=== PATIENT | female | born 1990 | race American Indian/Alaskan Native ===

== ENCOUNTER 2019-05-21 18:16 | Emergency (ER) | payer OTHER ==
[~2019-05-21] VITALS: Ht 170.2 cm; Wt 116.6 kg
[~2019-05-21 18:16] MED LIST: IBUPROFEN200 M1 PO; IRON325 M1 PO; TYLENOL325 MG PO; VITAFOL-OB+DHA1 EACH PO
== END 2019-05-21 19:39 | disposition home or self-care (01) ==
LOC: ED 18:16
DX: S93.402A Sprain of unspecified ligament of left ankle, initial encounter (principal); X50.9XXA Other and unspecified overexertion or strenuous movements or postures, initial encounter; Z87.891 Personal history of nicotine dependence
CPT/HCPCS: 73610; 84703; 99283-25

== ENCOUNTER 2020-06-26 09:15 | Inpatient (IN) | payer BC, OTHER ==
--- NOTE | 2020-06-26 09:45 | NUR ---
BOTH NARES SWABBED FOR COVID-19 WITHOUT COMPLICATION. SAMPLE TAKEN TO [facility] FOR RAPID TESTING.
--- NOTE | 2020-06-26 20:40 | PR ---
[facility] [address] [facility] [place], [place] [address] Signed Progress Notes IP Datetime Report Generated by CPN: 06/26/2020 20:40 PROGRESS NOTES: [id number] Impression: Reassuring Heart Rate Other Impressions: slow progress Procedures: Sterile Vag Exam Plan: Continue Present Management VITAL SIGNS: [id number] Vital Signs: Reviewed; Within Normal Limits EXAM: [id number] Dilatation: 4.0 Effacement: 50 Station: -2 Contractions: not picking up well MEMBRANES: [id number] Membranes Status: Ruptured Comments: Comfortable after epidural. Will continue. FETUS A: [id number] FHR Baseline: 130 Variability: Moderate 6-25bpm Accelerations: 15X15 Decelerations: None FHR Category: Category I Presentation: Vertex Comments on Fetus A: No evidence of metabolic acidosis FETUS B: [id number] Signing Physician: Pauline Marsh MD Copies: ~ *Electronically Signed* 06/26/202039 PAULINE MARSH MD PATIENT NAME: IRMA TOLEDO PROGRESS NOTE DATE OF : 89 PHYSICIAN: PAULINE MARSH MD RPT #: [id number] REPORT IS CONFIDENTIAL AND NOT TO BE RELEASED WITHOUT AUTHORIZATION
--- NOTE | 2020-06-27 03:16 | PR ---
[facility] [address] [place], [place] [address] Signed Progress Notes IP Datetime Report Generated by CPN: 06/27/2020 03:16 PROGRESS NOTES: [id number] Impression: Normal Progression of Labor Other Impressions: slow progress Procedures: Sterile Vag Exam Plan: Anesthesia Consult VITAL SIGNS: [id number] Vital Signs: Reviewed; Within Normal Limits EXAM: [id number] Dilatation: 9.0 Effacement: 75 Station: -2 Contractions: not picking up well MEMBRANES: [id number] Membranes Status: Ruptured Comments: Uncomfortable again. Progressing though minimal progress over the last 90 min. Will redose epidural and continue with position changes. FETUS A: [id number] FHR Baseline: 130 Variability: Moderate 6-25bpm Accelerations: 15X15 Decelerations: None FHR Category: Category I Presentation: Vertex Comments on Fetus A: No evidence of metabolic acidosis FETUS B: [id number] Signing Physician: Pauline Marsh MD Copies: ~ *Electronically Signed* 06/27/20 031 PAULINE MARSH MD PATIENT NAME: TRETEEYESSENIA EDWARDS PROGRESS NOTE DATE OF : 89 PHYSICIAN: PAULINE MARSH MD RPT #: [id number] REPORT IS CONFIDENTIAL AND NOT TO BE RELEASED WITHOUT AUTHORIZATION
--- NOTE | 2020-06-27 03:42 | PR ---
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 IUPC placed and will add pitocin if needed. Anesthesia here for redose of epidural. FETUS A: [id number] FHR Baseline: 130 Variability: Moderate 6-25bpm Accelerations: 15X15 Decelerations: None FHR Category: Category I Presentation: Vertex Comments on Fetus A: No evidence of metabolic acidosis FETUS B: [id number] Signing Physician: Pauline Marsh MD Copies: ~ *Electronically Signed* 06/27/20 034 PAULINE MARSH MD PATIENT NAME: IRMA TOLEDOAY PROGRESS NOTE DATE OF : 90 PHYSICIAN: PAULINE MARSH MD RPT #: [id number] REPORT IS CONFIDENTIAL AND NOT TO BE RELEASED WITHOUT AUTHORIZATION
--- NOTE | 2020-06-28 08:20 | PR ---
[facility] [address] [facility] [place], [place] [address] Signed PP Progress Notes Datetime Report Generated by CPN: 06/28/2020 08:20 SUBJECTIVE: [id number] Pain: Within Normal Limits Nausea/Vomiting: Denies Vital Signs: [id number] Vital Signs: Reviewed; Within Normal Limits EXAM: Ongoing Cardiovascular: Not Done Respiratory: Not Done Abdomen/Uterus: Abnormal Lochia: Normal Vulva/Perineum: Not Done Breasts: Not Done CVA Tenderness: Not Done Extremities: Normal Incision: Not Applicable Progress: Normal Exam Comments: Fundus firm, NT @ U-1. Labs pending IMPRESSION/PLAN/PROCEDURES: [id number] Impression: Normal Progression Plan: Discharge Procedures: None Progress Notes: Doing well. She would like discharge this afternoon. She had multiple doses of antibiotics. Signing Physician: Pauline Marsh MD Copies: ~ *Electronically Signed* 06/28/20819 PAULINE MARSH MD PATIENT NAME: IRMA TOLEDO PROGRESS NOTE DATE OF : 90 PHYSICIAN: PAULINE MARSH MD RPT #: [id number] REPORT IS CONFIDENTIAL AND NOT TO BE RELEASED WITHOUT AUTHORIZATION
== END 2020-06-28 16:46 | disposition home or self-care (01) | DRG 807 ==
LOC: FBC 09:15
PROVIDERS: ADMIT Obstetrics & Gynecology; ATTEND Obstetrics & Gynecology
PROC: 10907ZC Drainage of Amniotic Fluid, Therapeutic from Products of Conception, Via Natural or Artificial Opening (ICD-10-PCS; 2020-06-26)
PROC: 3E0P7VZ Introduction of Hormone into Female Reproductive, Via Natural or Artificial Opening (ICD-10-PCS; 2020-06-26)
PROC: 00HU33Z Insertion of Infusion Device into Spinal Canal, Percutaneous Approach (ICD-10-PCS; 2020-06-26)
PROC: 3E0R3BZ Introduction of Anesthetic Agent into Spinal Canal, Percutaneous Approach (ICD-10-PCS; 2020-06-26)
PROC: 10E0XZZ Delivery of Products of Conception, External Approach (ICD-10-PCS; principal; 2020-06-27)
PROC: 0HQ9XZZ Repair Perineum Skin, External Approach (ICD-10-PCS; 2020-06-27)
PROC: 10H07YZ Insertion of Other Device into Products of Conception, Via Natural or Artificial Opening (ICD-10-PCS; 2020-06-27)
DX: O48.0 Post-term pregnancy (principal); Z37.0 Single live birth; O99.824 Streptococcus B carrier state complicating childbirth; Z20.822 Contact with and (suspected) exposure to COVID-19; Z3A.40 40 weeks gestation of pregnancy; O99.334 Smoking (tobacco) complicating childbirth; F17.210 Nicotine dependence, cigarettes, uncomplicated; O69.81X0 Labor and delivery complicated by cord around neck, without compression, not applicable or unspecified; O99.214 Obesity complicating childbirth; E66.01 Morbid (severe) obesity due to excess calories; O99.284 Endocrine, nutritional and metabolic diseases complicating childbirth; E55.9 Vitamin D deficiency, unspecified; O70.0 First degree perineal laceration during delivery; Z86.19 Personal history of other infectious and parasitic diseases
CPT/HCPCS: 01960; 36415; 85027; A9270; J2001; J2540; J2590; J2795; U0003

== ENCOUNTER 2021-09-28 19:42 | Emergency (ER) | payer BC, OTHER ==
[~2021-09-28] VITALS: Ht 170.2 cm; Wt 95.2 kg
[2021-09-28] MEDS ORDERED: CYCLOBENZAPRINE10 MG PO (21:59)
[2021-09-28] MEDS ORDERED: MOBIC15 MG PO (21:59)
--- NOTE | 2021-09-30 14:07 | EKG ---
[facility] [address] [facility] [place] [address] Signed Normal sinus rhythm Rightward axis Borderline ECG No previous ECGs available Confirmed by DAGO BERMUDEZ MD ([id number]) on 09/30/2021 2:07:13 PM Electronically Signed By: DAGO BERMUDEZ MD 09/30/21 1407 PATIENT NAME: IRMA TOLEDO ANGELICAMARVA Electrocardiogram DATE OF : 89 PHYSICIAN: DAGO BERMUDEZ MD REPORT #: [id number] REPORT IS CONFIDENTIAL AND NOT TO BE RELEASED WITHOUT AUTHORIZATION
== END 2021-09-28 22:30 | disposition home or self-care (01) ==
LOC: ED 19:42
DX: M94.0 Chondrocostal junction syndrome [Tietze] (principal); I10 Essential (primary) hypertension; F17.200 Nicotine dependence, unspecified, uncomplicated
CPT/HCPCS: 36415; 71045; 71260; 80053; 83735; 84484; 85025; 85379; 85610; 93005; 93010; 99285-25; Q9967

== ENCOUNTER 2025-04-16 00:52 | Emergency (ER) | payer OTHER ==
[~2025-04-16] VITALS: Ht 170.2 cm; Wt 125.0 kg
[~2025-04-16 00:52] MED LIST changes: +CYCLOBENZAPRINE10 MG PO; +MOBIC15 MG PO
[2025-04-16 01:28] VITALS: BP 127/88
== END 2025-04-16 01:30 | disposition left against medical advice (07) ==
LOC: ED 00:52
DX: S06.9X1A Unspecified intracranial injury with loss of consciousness of 30 minutes or less, initial encounter (principal); S01.511A Laceration without foreign body of lip, initial encounter; I10 Essential (primary) hypertension; F17.200 Nicotine dependence, unspecified, uncomplicated; W19.XXXA Unspecified fall, initial encounter
CPT/HCPCS: 99284